=== PATIENT | female | born 1985 | race Caucasian/White ===

== ENCOUNTER → 2017-07-22 | Outpatient (CLI) | payer OTHER | LOC: M.RAD 08:28 | DX: S39.82XA Other specified injuries of lower back, initial encounter (principal); M43.17 Spondylolisthesis, lumbosacral region; M41.86 Other forms of scoliosis, lumbar region; V89.2XXA Person injured in unspecified motor-vehicle accident, traffic, initial encounter; Y93.89 Activity, other specified; Y92.89 Other specified places as the place of occurrence of the external cause; Y99.8 Other external cause status ==

== ENCOUNTER 2019-01-22 15:53 | Emergency (ER) | payer OTHER ==
[~2019-01-22] VITALS: Ht 157.5 cm; Wt 122.5 kg
[2019-01-22] MEDS ORDERED: IBUPROFEN 800800 M1 PO (16:54)
[2019-01-22 17:18] VITALS: BP 133/62
== END 2019-01-22 17:20 | disposition home or self-care (01) ==
LOC: M.ERS 15:53
DX: S93.402A Sprain of unspecified ligament of left ankle, initial encounter (principal); X50.1XXA Overexertion from prolonged static or awkward postures, initial encounter; Y93.89 Activity, other specified; Y92.89 Other specified places as the place of occurrence of the external cause; Y99.8 Other external cause status

== ENCOUNTER 2020-07-16 10:02 | Emergency (ER) | payer OTHER ==
[~2020-07-16] VITALS: Ht 157.5 cm; Wt 122.5 kg
[~2020-07-16 10:02] MED LIST: IBUPROFEN 800800 M1 PO
[2020-07-16] MEDS ORDERED: LEVO-T100 MCG PO (10:16)
[2020-07-16 10:48] LABS: ABSOLUTE BASOPHILS 0.1 thou/uL (0.0-0.2); ABSOLUTE EOSINOPHILS 0.5 thou/uL (0.0-0.7); ABSOLUTE LYMPHOCYTES 3.1 thou/uL (0.8-5.3); ABSOLUTE MONOCYTES 1.2 thou/uL (0.0-1.2); ABSOLUTE NEUTROPHILS 11.6 thou/uL (1.6-8.1); BASOPHILS 0.7 %; EOSINOPHILS 2.9 %; HEMATOCRIT 35.9 % (37.0-47.0); HEMOGLOBIN 11.3 gm/dL (12.0-15.0); MCH 26.1 pg (26.0-34.0); MCHC 31.5 g/dL (28.0-37.0); MONOCYTES 7.2 %; MPV 8.8 fl. (7.2-11.1); NUCLEATED RBCS 0 /100WBC; PLATELET COUNT* 210 thou/uL (150-400); POLYS 70.2 %; RBC 4.33 mil/uL (4.20-5.00); RDW-CV 15.7 % (10.5-14.5); WBC 16.6 thou/uL (4.0-11.0)
[2020-07-16 10:49] LABS: CALCIUM 8.7 mg/dL (8.5-10.1); CREATININE 0.5 mg/dL (0.6-1.3); POTASSIUM 5.4 mmol/L (3.5-5.1)
[2020-07-16 10:53] LABS: ALBUMIN 3.3 g/dL (3.4-5.0); TOTAL BILIRUBIN 0.2 mg/dL (<0.1-1.0); TOTAL PROTEIN 7.8 g/dL (6.4-8.2)
[2020-07-16 11:22] LABS: HYPOCHROMASIA 1+; PLATELET ESTIMATE ADEQUATE
[2020-07-16] MEDS ORDERED: FLEXERIL PO (12:37)
[2020-07-16 12:46] VITALS: BP 133/66
--- NOTE | 2020-07-16 18:18 | EKG ---
[place] [address] ELECTROCARDIOGRAM REPORT Name: LINDA ESTRADA Room: [facility]#: [id number] Admission: 07/16/20 Attend Phys: Discharge: 07/16/20 Date of : 87 Date of Service: 07/16/20 1140 Report #: [id number] THIS REPORT FOR: //name// [facility] ED Test Date: 2020-07-16 Test Time: 11:40:09 Pat Name: LINDA ESTRADA Department: Room: Gender: F Sales Support Advisor: CCD : [id number] Requested By: Noe Connelly Order Number: [id number] MD: Gilmar Lerma Measurements Intervals [place] Rate: 70 P: 141 VA: 157 QRS: 178 QRSD: 95 T: 155 QT: 401 QTc: 433 Interpretive Statements Right and left arm electrode reversal, interpretation assumes no reversal Sinus or ectopic atrial rhythm Right axis deviation No previous ECG available for comparison Electronically Signed On 07-16-2020 18:17:58 [employer]GR[employer] TE[employer] by Gilmar Lerma [email or web address] <ELECTRONICALLY SIGNED> By: Gilmar Lerma MD, FACC 07/16/20 1817 1140 1140 Gilmar Lerma MD, FAC /EPI
== END 2020-07-16 12:46 | disposition home or self-care (01) ==
LOC: M.ERS 10:02
PROVIDERS: Emergency Medicine Emergency Medical Services
DX: M54.2 Cervicalgia (principal); M54.5 Low back pain; R10.30 Lower abdominal pain, unspecified; Z79.899 Other long term (current) drug therapy; V47.5XXA Car driver injured in collision with fixed or stationary object in traffic accident, initial encounter; Y93.89 Activity, other specified; Y92.89 Other specified places as the place of occurrence of the external cause; Y99.8 Other external cause status